=== PATIENT | male | born 1970 | race Hispanic/Latino ===

== ENCOUNTER 2018-07-07 19:17 | Emergency (ER) | payer BC ==
[~2018-07-07] VITALS: Ht 162.6 cm; Wt 83.9 kg
[2018-07-07] MEDS ORDERED: AUGMENTIN 875-1 EACH PO (20:29)
[2018-07-07] MEDS ORDERED: CORTISPORIN-TC10 ML OT (20:31)
[2018-07-07 21:16] VITALS: BP 166/96
== END 2018-07-07 20:50 | disposition home or self-care (01) ==
LOC: FSED 19:17
DX: H66.011 Acute suppurative otitis media with spontaneous rupture of ear drum, right ear (principal); H66.005 Acute suppurative otitis media without spontaneous rupture of ear drum, recurrent, left ear; I10 Essential (primary) hypertension
CPT/HCPCS: 99282